=== PATIENT | female | born 1995 | race Asian ===

== ENCOUNTER 2021-05-11 13:39 | Emergency (ER) | payer OTHER ==
[~2021-05-11] VITALS: Ht 157.5 cm; Wt 63.5 kg
[2021-05-11 15:25] VITALS: BP 124/75; TEMP 97.2
== END 2021-05-11 15:25 | disposition home or self-care (01) ==
LOC: ED 13:39
DX: K21.9 Gastro-esophageal reflux disease without esophagitis (principal); M62.830 Muscle spasm of back; N39.0 Urinary tract infection, site not specified
CPT/HCPCS: 81000; 81025; 87086; 87088; 99282